=== PATIENT | male | born 1985 | race Caucasian/White ===

== ENCOUNTER 2018-01-23 11:26 | Emergency (ER) | payer OTHER, SELFPAY ==
[2018-01-23 11:30] VITALS: BP 153/90; PULSE 80; RESP 20; TEMP 36; O2SAT 98; BMI 24.4
--- NOTE | 2018-01-23 12:30 | ED.BACK ---
HPI - Back Pain/Injury <DEVANTE Donovan - Last Filed: 01/23/18 14:48> General Chief Complaint: Back Pain/Injury Stated Complaint: Fell off stool, right side pain Time Seen by Provider: 01/23/18 12:04 Source: patient and family Mode of arrival: ambulatory Limitations: no limitations History of Present Illness HPI Narrative: Patient presents after falling off a bar stool onto a car [place] yesterday. He landed on his right rib area. He now complains of pain on deep inspiration, coughing, sneezing, laughing in that area on his right ribs. He denies any shortness of breath. He has not tried ice, heat, ibuprofen or any rubt-bxh-fwzlrik pain medications at this time. He is concerned as he is supposed to be flying to [place] for the next week. He did note some right-sided abdominal pain today while having a bowel movement. He denies any urinary symptoms at this time or abdominal pain at this time. He states entire right side is tight and painful after his fall. Denies any numbness, tingling, incontinence or anesthesias. He denies any fevers or major medical history. He denies hitting his head, neck pain or back pain at this point time. Review of Systems <DEVANTE Donovan - Last Filed: 01/23/18 14:48> Review of Systems GENERAL: Denies chills, fatigue, malaise, fever, sweats. HEENT: Denies sinus pain, ear pain, sore throat, difficulty swallowing, dizziness. RESPIRATORY: See HPI CARDIOVASCULAR: Denies chest pain, palpitations, orthopnea, edema, GASTROINTESTINAL: Denies nausea, vomiting, abdominal pain, diarrhea, constipation, melena. : Denies dysuria, frequency, incontinence, hematuria, urinary retention. MUSCULOSKELETAL: See HPI SKIN: See HPI NEUROLOGIC: Denies weakness, headache, numbness, change in speech, confusion, seizures, incoordination. PSYCHIATRIC: No concerning psychosocial issues. 12 point review of systems is negative except for those stated above Exam <DEVANTE Donovan - Last Filed: 01/23/18 14:48> Narrative Exam Narrative: GENERAL: This is a well-nourished, well-developed patient, in mild distress. HEAD: Atraumatic. Normocephalic. No temporal or scalp tenderness. EYES: Pupils equal round and reactive. Extraocular motions intact. No scleral icterus. No injection or drainage. ENT: Nose without bleeding, purulent drainage or septal hematoma. Throat without erythema, tonsillar hypertrophy or exudate. Uvula midline. Airway patent. NECK: Trachea midline. No JVD or lymphadenopathy. Supple, nontender, no meningeal signs. CARDIOVASCULAR: Regular rate and rhythm without murmurs, gallops, or rubs. RESPIRATORY: Clear to auscultation. Breath sounds equal bilaterally. No wheezes, rales, or rhonchi. GASTROINTESTINAL: Abdomen soft, non-tender, nondistended. EXTREMITIES: No clubbing, cyanosis, or edema. No joint tenderness, effusion, or edema noted. BACK: Nontender without deformity or crepitance. No flank tenderness. NEURO: AOx3. SKIN: 3 cm abrasion right lower ribs. Overlying approximately 2 x 3 in of ecchymosis. No palpable deformities. Initial Vital Signs Initial Vital Signs: Vital Signs Temperature 96.8 F L 01/23/18 11:30 Pulse Rate 80 01/23/18 11:30 Respiratory Rate 20 01/23/18 11:30 Blood Pressure 153/90 H 01/23/18 11:30 Pulse Oximetry 98 01/23/18 11:30 <Attila Welch DO - Last Filed: 01/23/18 14:55> Initial Vital Signs Initial Vital Signs: Vital Signs Temperature 96.8 F L 01/23/18 11:30 Pulse Rate 80 01/23/18 11:30 Respiratory Rate 20 01/23/18 11:30 Blood Pressure 153/90 H 01/23/18 11:30 Pulse Oximetry 98 01/23/18 11:30 Course <JULIO Donovan-BC - Last Filed: 01/23/18 14:48> Orders Ordered: ED Orders 01/23/18 12:42 XR ribs RT min 3V w CXR1V Stat 01/23/18 13:10 Complete Blood Count AUTO DIFF Stat Comprehensive Metabolic Panel Stat Lipase Stat 01/23/18 13:15 Urinalysis and Microscopic Stat Reevaluation(s) Reevaluation #1: Lab is in to draw patient. Again denies need for pain medication, ice or heat at this point. Discussed waiting for x-ray result this point time. Time: 13:10 Reevaluation #2: Discussed negative x-ray results. Discussed waiting for labs at this point time. Time: 13:30 Reevaluation #3: Discussed results with patient and . Patient denies need for pain medication or ice at this point time. Discussed further workup of belly pain up at this morning, patient declines further workup at this time. States he would follow up if needed. Discussed at length return precautions of shortness of breath, difficulty breathing, weakness, numbness, tingling, acute changes including fever abdominal pain. Patient no questions or concerns at this point time. Time: 14:00 Vital Signs - 8 hr 01/23/18 11:30 01/23/18 14:04 Temperature 96.8 F L 96.5 F L Pulse Rate 80 71 Respiratory Rate 20 20 Blood Pressure 153/90 H Blood Pressure [Left Arm] 122/78 H Pulse Oximetry 98 99 <Attila Welch DO - Last Filed: 01/23/18 14:55> Orders Ordered: ED Orders 01/23/18 12:42 XR ribs RT min 3V w CXR1V Stat 01/23/18 13:10 Complete Blood Count AUTO DIFF Stat Comprehensive Metabolic Panel Stat Lipase Stat 01/23/18 13:15 Urinalysis and Microscopic Stat Vital Signs - 8 hr 01/23/18 11:30 01/23/18 14:04 Temperature 96.8 F L 96.5 F L Pulse Rate 80 71 Respiratory Rate 20 20 Blood Pressure 153/90 H Blood Pressure [Left Arm] 122/78 H Pulse Oximetry 98 99 MDM - Back Pain/Injury <DEVANTE DonovanBC - Last Filed: 01/23/18 14:48> Lab Data Attestation: I reviewed the patient's lab results. Result diagrams: 01/23/18 13:10 01/23/18 13:10 Lab Results 01/23/18 01/23/18 01/23/18 Range/Units 13:10 13:10 13:15 WBC 8.9 (4.5-11.0) X10^3/uL RBC 4.87 (4.5-5.9) X10^6/uL Hgb 15.8 (13.5-17.5) g/dL Hct 45.6 (41-53) % MCV 93.8 (80-100) fL MCH 32.5 (26-34) PG MCHC 34.6 (30-36) % RDW 12.9 (11.6-14.8) % Plt Count 265 (150-400) X10^3/uL Neut % (Auto) 79.5 H (50-75) % Lymph % (Auto) 10.9 L (25-40) % [place] % (Auto) 8.6 (3-14) % Eos % (Auto) 0.6 L (2-4) % Baso % (Auto) 0.4 (0-2) % Neut # (Auto) 7100 H (7981-4526) /uL Sodium 139 (137-145) mmol/L Potassium 4.4 (3.4-5.1) mmol/L Chloride 103 (98-107) mmol/L Carbon Dioxide 26 (22-32) mmol/L BUN 14 (9-20) mg/dL Creatinine 1.00 (0.66-1.25) mg/dL Estimated GFR > 60.0 (>60) mL/min BUN/Creatinine Ratio 14.0 (6-22) Glucose 100 (70-100) mg/dL Calcium 9.3 (8.4-10.2) mg/dL Total Bilirubin 0.6 (0.2-1.3) mg/dL AST 34 (17-59) IU/L ALT 37 (21-72) IU/L Alkaline Phosphatase 65 (38-126) U/L Total Protein 7.5 (6.3-8.2) g/dL Albumin 4.5 (3.5-5.0) g/dL Globulin 3.0 (1.7-4.1) g/dL Albumin/Globulin Ratio 1.5 (1.0-2.8) Lipase 31 (23-300) U/L Urine Color Yellow Urine Appearance Clear Urine pH 7.0 (4.5-8.0) Ur Specific [place] <=1.005 (1.000-1.035) Urine Protein Negative (Negative) Urine Glucose (UA) Negative (Normal) g/dL Urine Ketones Negative (NEGATIVE) Urine Occult Blood 1+ H (Negative) Urine Nitrate Negative (Negative) Urine Bilirubin Negative (NEGATIVE) Urine Urobilinogen 0.2 (0.2) E.U./dL Ur Leukocyte Esterase Negative (NEGATIVE) Urine RBC 1-5/hpf (0-5/HPF) Urine WBC None seen (0-5/HPF) Urine Bacteria None seen (None) Ur Culture Indicated? Cult not indicated Micro UA Comment Not Reportable Imaging Data right rib xray: Radiologist's impression: [address] [address] XRay Report Signed Patient: Chance Winchester MR#: [id number] : 1985 Acct:[id number] Age/Sex: 32 / M Date of Service: 01/23/18 Loc: ED Accession Number: [id number] Procedure: XR ribs RT min 3V w CXR1V Ordering Provider: Abbi Russell [employer] PROCEDURE: XR RIBS RT MIN 3V W CXR 1V INDICATIONS: fall onto rico, pain on inspiration, coughing TECHNIQUE: 2 views of the right ribs were acquired, along with a single view chest. COMPARISON: None. FINDINGS: Surgical changes and devices: None. Bones and chest wall: No fractures or dislocations. No suspicious bony lesions. Overlying soft tissues appear unremarkable. Lungs and pleura: No pleural effusions or pneumothorax. Lungs appear clear. Mediastinum: Mediastinal contours appear normal. Heart size is normal. IMPRESSION: No displaced rib fractures. Dictated by: Zulema Velásquez MD, PhD on 01/23/2018 at 13:14 Approved by: Zulema Velásquez MD, PhD on 01/23/2018 at 13:14 [facility] Narrative Medical decision making narrative: Patient presents with side pain after a fall into a car [place] from a stool. He complains of rib pain. X-rays show no acute fractures at this point time. Lab work came back within normal limits. Lab urinalysis came back within normal limits. Discussed probably etiology of rib pain or contusion. Patient declined further workup of transient abdominal pain at this point time. Discussed at length return precautions the patient and had no questions or concerns. <Attila Welch DO - Last Filed: 01/23/18 14:55> Lab Data Lab Results 01/23/18 01/23/18 01/23/18 Range/Units 13:10 13:10 13:15 WBC 8.9 (4.5-11.0) X10^3/uL RBC 4.87 (4.5-5.9) X10^6/uL Hgb 15.8 (13.5-17.5) g/dL Hct 45.6 (41-53) % MCV 93.8 (80-100) fL MCH 32.5 (26-34) PG MCHC 34.6 (30-36) % RDW 12.9 (11.6-14.8) % Plt Count 265 (150-400) X10^3/uL Neut % (Auto) 79.5 H (50-75) % Lymph % (Auto) 10.9 L (25-40) % [place] % (Auto) 8.6 (3-14) % Eos % (Auto) 0.6 L (2-4) % Baso % (Auto) 0.4 (0-2) % Neut # (Auto) 7100 H (3788-7331) /uL Sodium 139 (137-145) mmol/L Potassium 4.4 (3.4-5.1) mmol/L Chloride 103 (98-107) mmol/L Carbon Dioxide 26 (22-32) mmol/L BUN 14 (9-20) mg/dL Creatinine 1.00 (0.66-1.25) mg/dL Estimated GFR > 60.0 (>60) mL/min BUN/Creatinine Ratio 14.0 (6-22) Glucose 100 (70-100) mg/dL Calcium 9.3 (8.4-10.2) mg/dL Total Bilirubin 0.6 (0.2-1.3) mg/dL AST 34 (17-59) IU/L ALT 37 (21-72) IU/L Alkaline Phosphatase 65 (38-126) U/L Total Protein 7.5 (6.3-8.2) g/dL Albumin 4.5 (3.5-5.0) g/dL Globulin 3.0 (1.7-4.1) g/dL Albumin/Globulin Ratio 1.5 (1.0-2.8) Lipase 31 (23-300) U/L Urine Color Yellow Urine Appearance Clear Urine pH 7.0 (4.5-8.0) Ur Specific [place] <=1.005 (1.000-1.035) Urine Protein Negative (Negative) Urine Glucose (UA) Negative (Normal) g/dL Urine Ketones Negative (NEGATIVE) Urine Occult Blood 1+ H (Negative) Urine Nitrate Negative (Negative) Urine Bilirubin Negative (NEGATIVE) Urine Urobilinogen 0.2 (0.2) E.U./dL Ur Leukocyte Esterase Negative (NEGATIVE) Urine RBC 1-5/hpf (0-5/HPF) Urine WBC None seen (0-5/HPF) Urine Bacteria None seen (None) Ur Culture Indicated? Cult not indicated Micro UA Comment Not Reportable Discharge Plan Departure Patient Disposition: Home, Self-Care Clinical Impression: Rib pain on right side Discharge Date/Time: 01/23/18 14:15 Interventions: ED Discharge Assessment Last Done: 01/23/18 14:15 Instructions: DI for Contusion, DI for Rib Contusion Activity Restrictions/Additional Instructions: Your x-rays any lab work came back normal today. I suggest oxtf-[id number] pain medications as well as ice or heat for pain control. Come back to the emergency department for any shortness of breath, trouble breathing, fever, abd pain or acute concerns. Follow-up with her primary care provider if needed or come back to the emergency department if necessary. <Attila Welch DO - Last Filed: 01/23/18 14:55> Cosign ED Attending Laurence Attestation: I was available for consultation during this patient's emergency department encounter
--- NOTE | 2018-01-23 12:42 | DI.RAD.S_ITS ---
PROCEDURE: XR RIBS RT MIN 3V W CXR 1V INDICATIONS: fall onto daniele, pain on inspiration, coughing TECHNIQUE: 2 views of the right ribs were acquired, along with a single view chest. COMPARISON: None. FINDINGS: Surgical changes and devices: None. Bones and chest wall: No fractures or dislocations. No suspicious bony lesions. Overlying soft tissues appear unremarkable. Lungs and pleura: No pleural effusions or pneumothorax. Lungs appear clear. Mediastinum: Mediastinal contours appear normal. Heart size is normal. IMPRESSION: No displaced rib fractures. Dictated by: Zulema Velásquez MD, PhD on 01/23/2018 at 13:14 Approved by: Zulema Velásquez MD, PhD on 01/23/2018 at 13:14
--- NOTE | 2018-01-23 12:49 | ED_ITS ---
HPI - Back Pain/Injury <DEVANTE Donovan - Last Filed: 01/23/18 14:48> General Chief Complaint: Back Pain/Injury Stated Complaint: Fell off stool, right side pain Time Seen by Provider: 01/23/18 12:04 Source: patient and family Mode of arrival: ambulatory Limitations: no limitations History of Present Illness HPI Narrative: Patient presents after falling off a bar stool onto a car [place] yesterday. He landed on his right rib area. He now complains of pain on deep inspiration, coughing, sneezing, laughing in that area on his right ribs. He denies any shortness of breath. He has not tried ice, heat, ibuprofen or any vlsi-rvo-herrrcv pain medications at this time. He is concerned as he is supposed to be flying to [place] for the next week. He did note some right-sided abdominal pain today while having a bowel movement. He denies any urinary symptoms at this time or abdominal pain at this time. He states entire right side is tight and painful after his fall. Denies any numbness, tingling, incontinence or anesthesias. He denies any fevers or major medical history. He denies hitting his head, neck pain or back pain at this point time. Review of Systems <DEVANTE Donovan - Last Filed: 01/23/18 14:48> Review of Systems GENERAL: Denies chills, fatigue, malaise, fever, sweats. HEENT: Denies sinus pain, ear pain, sore throat, difficulty swallowing, dizziness. RESPIRATORY: See HPI CARDIOVASCULAR: Denies chest pain, palpitations, orthopnea, edema, GASTROINTESTINAL: Denies nausea, vomiting, abdominal pain, diarrhea, constipation, melena. : Denies dysuria, frequency, incontinence, hematuria, urinary retention. MUSCULOSKELETAL: See HPI SKIN: See HPI NEUROLOGIC: Denies weakness, headache, numbness, change in speech, confusion, seizures, incoordination. PSYCHIATRIC: No concerning psychosocial issues. 12 point review of systems is negative except for those stated above Exam <DEVANTE Donovan - Last Filed: 01/23/18 14:48> Narrative Exam Narrative: GENERAL: This is a well-nourished, well-developed patient, in mild distress. HEAD: Atraumatic. Normocephalic. No temporal or scalp tenderness. EYES: Pupils equal round and reactive. Extraocular motions intact. No scleral icterus. No injection or drainage. ENT: Nose without bleeding, purulent drainage or septal hematoma. Throat without erythema, tonsillar hypertrophy or exudate. Uvula midline. Airway patent. NECK: Trachea midline. No JVD or lymphadenopathy. Supple, nontender, no meningeal signs. CARDIOVASCULAR: Regular rate and rhythm without murmurs, gallops, or rubs. RESPIRATORY: Clear to auscultation. Breath sounds equal bilaterally. No wheezes , rales, or rhonchi. GASTROINTESTINAL: Abdomen soft, non-tender, nondistended. EXTREMITIES: No clubbing, cyanosis, or edema. No joint tenderness, effusion, or edema noted. BACK: Nontender without deformity or crepitance. No flank tenderness. NEURO: AOx3. SKIN: 3 cm abrasion right lower ribs. Overlying approximately 2 x 3 in of ecchymosis. No palpable deformities. Initial Vital Signs Initial Vital Signs: Vital Signs Temperature 96.8 F L 01/23/18 11:30 Pulse Rate 80 01/23/18 11:30 Respiratory Rate 20 01/23/18 11:30 Blood Pressure 153/90 H 01/23/18 11:30 Pulse Oximetry 98 01/23/18 11:30 <Attila Welch DO - Last Filed: 01/23/18 14:55> Initial Vital Signs Initial Vital Signs: Vital Signs Temperature 96.8 F L 01/23/18 11:30 Pulse Rate 80 01/23/18 11:30 Respiratory Rate 20 01/23/18 11:30 Blood Pressure 153/90 H 01/23/18 11:30 Pulse Oximetry 98 01/23/18 11:30 Course <JULIO Donovan-BC - Last Filed: 01/23/18 14:48> Orders Ordered: ED Orders 01/23/18 12:42 XR ribs RT min 3V w CXR1V Stat 01/23/18 13:10 Complete Blood Count AUTO DIFF Stat Comprehensive Metabolic Panel Stat Lipase Stat 01/23/18 13:15 Urinalysis and Microscopic Stat Reevaluation(s) Reevaluation #1: Lab is in to draw patient. Again denies need for pain medication, ice or heat at this point. Discussed waiting for x-ray result this point time. Time: 13:10 Reevaluation #2: Discussed negative x-ray results. Discussed waiting for labs at this point time. Time: 13:30 Reevaluation #3: Discussed results with patient and . Patient denies need for pain medication or ice at this point time. Discussed further workup of belly pain up at this morning, patient declines further workup at this time. States he would follow up if needed. Discussed at length return precautions of shortness of breath, difficulty breathing, weakness, numbness, tingling, acute changes including fever abdominal pain. Patient no questions or concerns at this point time. Time: 14:00 Vital Signs - 8 hr 01/23/18 11:30 01/23/18 14:04 Temperature 96.8 F L 96.5 F L Pulse Rate 80 71 Respiratory Rate 20 20 Blood Pressure 153/90 H Blood Pressure [Left Arm] 122/78 H Pulse Oximetry 98 99 <Attila Welch DO - Last Filed: 01/23/18 14:55> Orders Ordered: ED Orders 01/23/18 12:42 XR ribs RT min 3V w CXR1V Stat 01/23/18 13:10 Complete Blood Count AUTO DIFF Stat Comprehensive Metabolic Panel Stat Lipase Stat 01/23/18 13:15 Urinalysis and Microscopic Stat Vital Signs - 8 hr 01/23/18 11:30 01/23/18 14:04 Temperature 96.8 F L 96.5 F L Pulse Rate 80 71 Respiratory Rate 20 20 Blood Pressure 153/90 H Blood Pressure [Left Arm] 122/78 H Pulse Oximetry 98 99 MDM - Back Pain/Injury <DEVANTE DonovanBC - Last Filed: 01/23/18 14:48> Lab Data Attestation: I reviewed the patient's lab results. Result diagrams: 01/23/18 13:10 01/23/18 13:10 Lab Results 01/23/18 01/23/18 01/23/18 Range/Units 13:10 13:10 13:15 WBC 8.9 (4.5-11.0) X10^3/uL RBC 4.87 (4.5-5.9) X10^6/uL Hgb 15.8 (13.5-17.5) g/dL Hct 45.6 (41-53) % MCV 93.8 (80-100) fL MCH 32.5 (26-34) PG MCHC 34.6 (30-36) % RDW 12.9 (11.6-14.8) % Plt Count 265 (150-400) X10^3/uL Neut % (Auto) 79.5 H (50-75) % Lymph % (Auto) 10.9 L (25-40) % [place] % (Auto) 8.6 (3-14) % Eos % (Auto) 0.6 L (2-4) % Baso % (Auto) 0.4 (0-2) % Neut # (Auto) 7100 H (7821-6398) /uL Sodium 139 (137-145) mmol/L Potassium 4.4 (3.4-5.1) mmol/L Chloride 103 (98-107) mmol/L Carbon Dioxide 26 (22-32) mmol/L BUN 14 (9-20) mg/dL Creatinine 1.00 (0.66-1.25) mg/dL Estimated GFR > 60.0 (>60) mL/min BUN/Creatinine Ratio 14.0 (6-22) Glucose 100 (70-100) mg/dL Calcium 9.3 (8.4-10.2) mg/dL Total Bilirubin 0.6 (0.2-1.3) mg/dL AST 34 (17-59) IU/L ALT 37 (21-72) IU/L Alkaline Phosphatase 65 (38-126) U/L Total Protein 7.5 (6.3-8.2) g/dL Albumin 4.5 (3.5-5.0) g/dL Globulin 3.0 (1.7-4.1) g/dL Albumin/Globulin Ratio 1.5 (1.0-2.8) Lipase 31 (23-300) U/L Urine Color Yellow Urine Appearance Clear Urine pH 7.0 (4.5-8.0) Ur Specific [place] <=1.005 (1.000-1.035) Urine Protein Negative (Negative) Urine Glucose (UA) Negative (Normal) g/dL Urine Ketones Negative (NEGATIVE) Urine Occult Blood 1+ H (Negative) Urine Nitrate Negative (Negative) Urine Bilirubin Negative (NEGATIVE) Urine Urobilinogen 0.2 (0.2) E.U./dL Ur Leukocyte Esterase Negative (NEGATIVE) Urine RBC 1-5/hpf (0-5/HPF) Urine WBC None seen (0-5/HPF) Urine Bacteria None seen (None) Ur Culture Indicated? Cult not indicated Micro UA Comment Not Reportable Imaging Data right rib xray: Radiologist's impression: [address] [address] XRay Report Signed Patient: Chance Winchester MR#: [id number] : 1985 Acct:[id number] Age/Sex: 32 / M Date of Service: 01/23/18 Loc: ED Accession Number: [id number] Procedure: XR ribs RT min 3V w CXR1V Ordering Provider: Abbi Russell [employer]VIRONMENT[employer]AFET[employer] SPECIALIST-BC PROCEDURE: XR RIBS RT MIN 3V W CXR 1V INDICATIONS: fall onto rico, pain on inspiration, coughing TECHNIQUE: 2 views of the right ribs were acquired, along with a single view chest. COMPARISON: None. FINDINGS: Surgical changes and devices: None. Bones and chest wall: No fractures or dislocations. No suspicious bony lesions. Overlying soft tissues appear unremarkable. Lungs and pleura: No pleural effusions or pneumothorax. Lungs appear clear. Mediastinum: Mediastinal contours appear normal. Heart size is normal. IMPRESSION: No displaced rib fractures. Dictated by: Zulema Velásquez MD, PhD on 01/23/2018 at 13:14 Approved by: Zulema Velásquez MD, PhD on 01/23/2018 at 13:14 [facility] Narrative Medical decision making narrative: Patient presents with side pain after a fall into a car [place] from a stool. He complains of rib pain. X-rays show no acute fractures at this point time. Lab work came back within normal limits. Lab urinalysis came back within normal limits. Discussed probably etiology of rib pain or contusion. Patient declined further workup of transient abdominal pain at this point time. Discussed at length return precautions the patient and had no questions or concerns. <Attila Welch DO - Last Filed: 01/23/18 14:55> Lab Data Lab Results 01/23/18 01/23/18 01/23/18 Range/Units 13:10 13:10 13:15 WBC 8.9 (4.5-11.0) X10^3/uL RBC 4.87 (4.5-5.9) X10^6/uL Hgb 15.8 (13.5-17.5) g/dL Hct 45.6 (41-53) % MCV 93.8 (80-100) fL MCH 32.5 (26-34) PG MCHC 34.6 (30-36) % RDW 12.9 (11.6-14.8) % Plt Count 265 (150-400) X10^3/uL Neut % (Auto) 79.5 H (50-75) % Lymph % (Auto) 10.9 L (25-40) % [place] % (Auto) 8.6 (3-14) % Eos % (Auto) 0.6 L (2-4) % Baso % (Auto) 0.4 (0-2) % Neut # (Auto) 7100 H (1463-3763) /uL Sodium 139 (137-145) mmol/L Potassium 4.4 (3.4-5.1) mmol/L Chloride 103 (98-107) mmol/L Carbon Dioxide 26 (22-32) mmol/L BUN 14 (9-20) mg/dL Creatinine 1.00 (0.66-1.25) mg/dL Estimated GFR > 60.0 (>60) mL/min BUN/Creatinine Ratio 14.0 (6-22) Glucose 100 (70-100) mg/dL Calcium 9.3 (8.4-10.2) mg/dL Total Bilirubin 0.6 (0.2-1.3) mg/dL AST 34 (17-59) IU/L ALT 37 (21-72) IU/L Alkaline Phosphatase 65 (38-126) U/L Total Protein 7.5 (6.3-8.2) g/dL Albumin 4.5 (3.5-5.0) g/dL Globulin 3.0 (1.7-4.1) g/dL Albumin/Globulin Ratio 1.5 (1.0-2.8) Lipase 31 (23-300) U/L Urine Color Yellow Urine Appearance Clear Urine pH 7.0 (4.5-8.0) Ur Specific [place] <=1.005 (1.000-1.035) Urine Protein Negative (Negative) Urine Glucose (UA) Negative (Normal) g/dL Urine Ketones Negative (NEGATIVE) Urine Occult Blood 1+ H (Negative) Urine Nitrate Negative (Negative) Urine Bilirubin Negative (NEGATIVE) Urine Urobilinogen 0.2 (0.2) E.U./dL Ur Leukocyte Esterase Negative (NEGATIVE) Urine RBC 1-5/hpf (0-5/HPF) Urine WBC None seen (0-5/HPF) Urine Bacteria None seen (None) Ur Culture Indicated? Cult not indicated Micro UA Comment Not Reportable Discharge Plan Departure Patient Disposition: Home, Self-Care Clinical Impression: Rib pain on right side Discharge Date/Time: 01/23/18 14:15 Interventions: ED Discharge Assessment Last Done: 01/23/18 14:15 Instructions: DI for Contusion, DI for Rib Contusion Activity Restrictions/Additional Instructions: Your x-rays any lab work came back normal today. I suggest momd-hmv-chauovb pain medications as well as ice or heat for pain control. Come back to the emergency department for any shortness of breath, trouble breathing, fever, abd pain or acute concerns. Follow-up with her primary care provider if needed or come back to the emergency department if necessary. <Attila Welch DO - Last Filed: 01/23/18 14:55> Cosign ED Attending Laurence Attestation: I was available for consultation during this patient's emergency department encounter
[2018-01-23 13:19] LABS: Add Manual Diff / Slide Review NO; Basophils Percent Auto 0.4 % (0-2); Eosinophils Percent Auto 0.6 % (2-4); Hematocrit 45.6 % (41-53); Hemoglobin 15.8 g/dL (13.5-17.5); Lymphocytes Percent Auto 10.9 % (25-40); Mean Corpuscular HGB Conc 34.6 % (30-36); Mean Corpuscular Hemoglobin 32.5 PG (26-34); Mean Corpuscular Volume 93.8 fL (80-100); Monocytes Percent Auto 8.6 % (3-14); Neutrophils Absolute Auto 7100 /uL (3000-5900); Neutrophils Percent Auto 79.5 % (50-75); Platelet Count 265 X10^3/uL (150-400); Red Blood Cell Count 4.87 X10^6/uL (4.5-5.9); Red Cell Distribution Width 12.9 % (11.6-14.8); White Blood Cell Count 8.9 X10^3/uL (4.5-11.0)
[2018-01-23 13:27] LABS: Bacteria Urine None Seen; WBC Urine None Seen (0-5/HPF)
[2018-01-23 13:28] LABS: Appearance Urine UA CLEAR; Bilirubin Urine UA NEGATIVE (NEGATIVE); Color Urine UA YELLOW; Glucose Urine UA NEGATIVE (Normal); Ketones Urine UA NEGATIVE (NEGATIVE); Leukocyte Esterase Urine UA NEGATIVE (NEGATIVE); Nitrite Urine UA Negative (Negative); Occult Blood Urine UA 1+ (Negative); Protein Urine UA NEGATIVE (Negative); Specific Gravity Urine UA <=1.005 (1.000-1.035); Urobilinogen Urine UA 0.2 E.U./dL (0.2)
[2018-01-23 13:31] LABS: Alanine Aminotransferase 37 IU/L (21-72); Albumin 4.5 g/dL (3.5-5.0); Albumin Globulin Ratio 1.5 (1.0-2.8); Alkaline Phosphatase 65 U/L (38-126); Aspartate Aminotransferase 34 IU/L (17-59); Bilirubin Total 0.6 mg/dL (0.2-1.3); Blood Urea Nitrogen 14 mg/dL (9-20); Calcium 9.3 mg/dL (8.4-10.2); Carbon Dioxide 26 mmol/L (22-32); Chloride 103 mmol/L (98-107); Estimated Glomerular Filt Rate > 60.0 mL/min (>60); Glucose 100 mg/dL (70-100); HEMOLYSIS < 15 (0-50); Lipase 31 U/L (23-300); Potassium 4.4 mmol/L (3.4-5.1); Sodium 139 mmol/L (137-145); Total Protein 7.5 g/dL (6.3-8.2)
[2018-01-23 13:35] LABS: Culture Indicated Urine Cult Not Indicated; RBC Urine 1-5/HPF (0-5/HPF)
[2018-01-23 14:04] VITALS: BP 122/78; PULSE 71; RESP 20; TEMP 35.8; O2SAT 99
== END 2018-01-23 14:15 | disposition home or self-care (01) ==
PROVIDERS: Emergency Provider Nurse Practitioner Family
DX: R07.81 Pleurodynia (principal)
CPT/HCPCS: 71101; 80053; 81001; 81003; 83690; 85025; 99282; 99284

== ENCOUNTER 2023-05-19 12:31 | Emergency (ER) | payer OTHER, SELFPAY ==
[2023-05-19 12:52] VITALS: BP 147/67; PULSE 97; RESP 20; TEMP 37.1; O2SAT 98; BMI 23.8
--- NOTE | 2023-05-19 14:18 | ED_ITS ---
HPI - URI/Sore Throat <Meseret Fairchild PA-C - Last Filed: 05/19/23 18:04> General Chief Complaint: Upper Respiratory Symptoms Stated Complaint: swollen lymphnodes/right side of face swollen Time Seen by Provider: 05/19/23 12:36 Source: patient Mode of arrival: Ambulatory History of Present Illness HPI Narrative: Patient is a 37 year old male who has been sick for nearly 2 weeks with sore throat, congestion, mild cough. Seen at the [facility] on 05/11 and covid/flu/strep was negative. He presents today with worsening right jaw/neck swelling and pain. The pain limits the opening of his mouth. His throat is also very sore and hurts to swallow. He denies fever or chills, nausea vomiting, diarrhea or urinary symptoms. He has been taking Tylenol, ibuprofen and codeine cough syrup, which he says makes him loopy but does not help him sleep. He is having difficulty sleeping due to the pain in his jaw and neck. Related Data Allergies Allergy/AdvReac Type Severity Reaction Status Date / Time No Known Drug Allergies Allergy Verified 05/19/23 12:58 Review of Systems <Meseret Fairchild PA-C - Last Filed: 05/19/23 18:04> Review of Systems ROS Unobtainable: All systems reviewed & are unremarkable except as noted in HPI and below Patient History <Meseret Fairchild PA-C - Last Filed: 05/19/23 18:04> Social History Smoking Status: Current every day smoker Smoking Status: Current every day smoker alcohol intake frequency: a few times a week Substance Use Type: does not use Exam <Meseret Fairchild PA-C - Last Filed: 05/19/23 18:04> Narrative Exam Narrative: GENERAL: 37 year old patient appears stated age. Well-developed patient, in no distress. NEURO: AOx3. HEAD: Atraumatic. Normocephalic. EYES: Pupils equal round and reactive. Extraocular motions intact. No scleral icterus. No injection or drainage. ENT: Nose without bleeding or purulent drainage. Throat with erythema, mild tonsillar hypertrophy, no exudate. Uvula is midline. Airway patent. Patient complains of difficulty opening his jaw but is able to open 3 cm. No swelling or tenderness under the tongue. TMs pearly ghosh bilaterally. No drainage or purulence in the external auditory canal. No erythema or edema over the mastoid. NECK: Trachea midline. Tender lymphadenopathy bilaterally, right greater than left. No overlying erythema or edema of the skin. RESPIRATORY: No distress or increased work of breathing SKIN: No rash or erythema of visible areas Initial Vital Signs Initial Vital Signs: Vital Signs Temperature 98.8 F 05/19/23 12:52 Pulse Rate 97 H 05/19/23 12:52 Respiratory Rate 20 05/19/23 12:52 Blood Pressure 147/67 H 05/19/23 12:52 Pulse Oximetry 98 05/19/23 12:52 Oxygen Delivery Method Room Air 05/19/23 12:52 <Abbi Mcelroy MD - Last Filed: 05/19/23 18:43> Initial Vital Signs Initial Vital Signs: Vital Signs Temperature 98.8 F 05/19/23 12:52 Pulse Rate 97 H 05/19/23 12:52 Respiratory Rate 20 05/19/23 12:52 Blood Pressure 147/67 H 05/19/23 12:52 Pulse Oximetry 98 05/19/23 12:52 Oxygen Delivery Method Room Air 05/19/23 12:52 Course <Meseret Fairchild PA-C - Last Filed: 05/19/23 18:04> Orders Ordered: ED Orders 05/19/23 14:20 CBC Auto Diff [Complete Blood Count AUTO DIFF] Stat CMP [Comprehensive Metabolic Panel] Stat Monotest Stat Pathologist Review (for CBC) Stat Vital Signs Vital signs: Vital Signs - 8 hr 05/19/23 12:52 05/19/23 15:17 Temperature 98.8 F Pulse Rate 97 H 90 Respiratory Rate 20 16 Blood Pressure 147/67 H 145/65 H Pulse Oximetry 98 99 Oxygen Delivery Method Room Air Room Air <Abbi Mcelroy MD - Last Filed: 05/19/23 18:43> Orders Ordered: ED Orders 05/19/23 14:20 CBC Auto Diff [Complete Blood Count AUTO DIFF] Stat CMP [Comprehensive Metabolic Panel] Stat Monotest Stat Pathologist Review (for CBC) Stat Vital Signs Vital signs: Vital Signs - 8 hr 05/19/23 12:52 05/19/23 15:17 Temperature 98.8 F Pulse Rate 97 H 90 Respiratory Rate 20 16 Blood Pressure 147/67 H 145/65 H Pulse Oximetry 98 99 Oxygen Delivery Method Room Air Room Air MDM - URI/Sore Throat <Meseret Fairchild PA-C - Last Filed: 05/19/23 18:04> Lab Data 05/19/23 14:20 05/19/23 14:20 Labs: Lab Results 05/19/23 Range/Units 14:20 WBC 14.7 H (4.5-11.0) X10^3/uL RBC 4.37 L (4.5-5.9) X10^6/uL Hgb 13.6 (13.5-17.5) g/dL Hct 39.6 L (41-53) % MCV 90.6 (80-100) fL MCH 31.1 (26-34) PG MCHC 34.3 (30-36) % RDW 12.5 (11.6-14.8) % Plt Count 289 (150-400) X10^3/uL Neut % (Auto) Not Reportable Lymph % (Auto) Not Reportable [place] % (Auto) Not Reportable Eos % (Auto) Not Reportable Baso % (Auto) Not Reportable Lymph # (Auto) Not Reportable [place] # (Auto) Not Reportable Baso # (Auto) Not Reportable Total Counted 100 Seg Neutrophils % 27.0 L (38-70) % Band Neutrophils % 1.0 L (3-7) % Lymphocytes % (Manual) 18.0 L (25-45) % Atypical Lymphs % 48.0 H ( - 0) % Monocytes % (Manual) 6.0 (2-11) % Neutrophils # (Manual) 4116 ([id number]) /uL RBC Morphology Normal morphology Sodium 136 L (137-145) mmol/L Potassium 4.5 (3.4-5.1) mmol/L Chloride 101 (98-107) mmol/L Carbon Dioxide 28 (22-32) mmol/L BUN 12 (9-20) mg/dL Creatinine 1.01 (0.66-1.25) mg/dL Estimated GFR > 60 (>60) mL/min BUN/Creatinine Ratio 11.9 (6-22) Glucose 103 H (70-100) mg/dL Calcium 9.3 (8.4-10.2) mg/dL Total Bilirubin 0.6 (0.2-1.3) mg/dL AST 93 H (17-59) IU/L ALT 123 H (<50) IU/L Alkaline Phosphatase 74 (38-126) U/L Total Protein 7.4 (6.3-8.2) g/dL Albumin 4.0 (3.5-5.0) g/dL Globulin 3.4 (1.7-4.1) g/dL Albumin/Globulin Ratio 1.2 (1.0-2.8) Monoscreen Positive H (Negative) MDM Narrative Medical decision making narrative: Multiple etiologies for patient's symptoms considered including, but not limited to: Bacterial pharyngitis, viral pharyngitis, mono, less likely Nikolas's angina, peritonsillar abscess, deep neck space infection, dental infection. We will repeat rapid strep and throat culture today and labs to include testing for mono, CBC and CMP. Patient does not appear toxic, his vital signs are within normal limits. Labs show positive mono, leukocytosis with elevated atypical lymphocytes and mild elevation liver enzymes. These findings are consistent with mononucleosis. Discussed findings with patient, advised supportive care, no contact sports or high velocity activities in order to decrease risk of splenic injury. Literature does not support treatment with antivirals or steroids, unless for preservation of the airway. Patient states understanding of instructions. Patient's symptoms improved over duration of stay with above-stated therapies. Findings and discharge diagnosis discussed with patient/family followed by verbalization of understanding Return precautions discussed with patient/family whom verbalize understanding of diagnosis and plan <Abbi Mcelroy MD - Last Filed: 05/19/23 18:43> Lab Data Labs: Lab Results 05/19/23 Range/Units 14:20 WBC 14.7 H (4.5-11.0) X10^3/uL RBC 4.37 L (4.5-5.9) X10^6/uL Hgb 13.6 (13.5-17.5) g/dL Hct 39.6 L (41-53) % MCV 90.6 (80-100) fL MCH 31.1 (26-34) PG MCHC 34.3 (30-36) % RDW 12.5 (11.6-14.8) % Plt Count 289 (150-400) X10^3/uL Neut % (Auto) Not Reportable Lymph % (Auto) Not Reportable [place] % (Auto) Not Reportable Eos % (Auto) Not Reportable Baso % (Auto) Not Reportable Lymph # (Auto) Not Reportable [place] # (Auto) Not Reportable Baso # (Auto) Not Reportable Total Counted 100 Seg Neutrophils % 27.0 L (38-70) % Band Neutrophils % 1.0 L (3-7) % Lymphocytes % (Manual) 18.0 L (25-45) % Atypical Lymphs % 48.0 H ( - 0) % Monocytes % (Manual) 6.0 (2-11) % Neutrophils # (Manual) 4116 (4355-4565) /uL RBC Morphology Normal morphology Sodium 136 L (137-145) mmol/L Potassium 4.5 (3.4-5.1) mmol/L Chloride 101 (98-107) mmol/L Carbon Dioxide 28 (22-32) mmol/L BUN 12 (9-20) mg/dL Creatinine 1.01 (0.66-1.25) mg/dL Estimated GFR > 60 (>60) mL/min BUN/Creatinine Ratio 11.9 (6-22) Glucose 103 H (70-100) mg/dL Calcium 9.3 (8.4-10.2) mg/dL Total Bilirubin 0.6 (0.2-1.3) mg/dL AST 93 H (17-59) IU/L ALT 123 H (<50) IU/L Alkaline Phosphatase 74 (38-126) U/L Total Protein 7.4 (6.3-8.2) g/dL Albumin 4.0 (3.5-5.0) g/dL Globulin 3.4 (1.7-4.1) g/dL Albumin/Globulin Ratio 1.2 (1.0-2.8) Monoscreen Positive H (Negative) Discharge Plan Departure Patient Disposition: Home Clinical Impression: Mononucleosis Qualifiers: Infectious mononucleosis etiology: unspecified organism Infectious mononucleosis complication: without complication Qualified Code(s): B27.90 - Infectious mononucleosis, unspecified without complication Instructions: DI for Mononucleosis-Adult Activity Restrictions/Additional Instructions: *You have been diagnosed with mononucleosis. As we discussed, the treatment for this is supportive care and time. I would suggest taken ibuprofen before bed to try to help you sleep. You can try gargling with saltwater and tea with honey for sore throat. It may take weeks to months for the fatigue to resolve. I would advise avoiding contact or high velocity sports or activities until your better, as mono does cause enlargement of the spleen, which increases the risk of splenic injury if you get in accident. Please return to the emergency department if you are having increasing difficulty breathing, worsening abdominal pain or vomiting. *What to do: *Please continue to take your regular medications as directed. [ ] New medication prescriptions sent to your pharmacy: [ ] [ ] New medication written as a paper prescription [x] No new medications given *Please follow up with your primary care provider in 2-3 days, call for an appointment. Let them know you were seen in the Emergency Department and that we ask that you be seen in follow up. We will electronically transmit a record of today's note if your PCP is in our system *If you do not have a primary care provider please contact the [facility] Resource line at [phone]. They will ask some questions about your medical history and help get you set up with a doctor in the community. *Return to Emergency Department if you should have any new, worsening or concerning symptoms, such as [fever greater than 101 F, shaking chills, worsening pain, persistent vomiting or other concerning symptoms]. Stand Alone Forms: Patient Portal/API ED Sign-out <Abbi Mcelroy MD - Last Filed: 05/19/23 18:43> Cosign ED Attending Robature Attestation: I did not see this patient. I was available all times for consultation.
[2023-05-19 14:30] LABS: Hematocrit 39.6 % (41-53); Hemoglobin 13.6 g/dL (13.5-17.5); Mean Corpuscular HGB Conc 34.3 % (30-36); Mean Corpuscular Hemoglobin 31.1 PG (26-34); Mean Corpuscular Volume 90.6 fL (80-100); Platelet Count 289 X10^3/uL (150-400); Red Blood Cell Count 4.37 X10^6/uL (4.5-5.9); Red Cell Distribution Width 12.5 % (11.6-14.8); White Blood Cell Count 14.7 X10^3/uL (4.5-11.0)
[2023-05-19 14:32] LABS: Add Manual Diff / Slide Review YES
[2023-05-19 14:46] LABS: Alanine Aminotransferase 123 IU/L (<50); Albumin Globulin Ratio 1.2 (1.0-2.8); Alkaline Phosphatase 74 U/L (38-126); Aspartate Aminotransferase 93 IU/L (17-59); BUN Creatinine Ratio 11.9 (6-22); Bilirubin Total 0.6 mg/dL (0.2-1.3); Blood Urea Nitrogen 12 mg/dL (9-20); Calcium 9.3 mg/dL (8.4-10.2); Carbon Dioxide 28 mmol/L (22-32); Chloride 101 mmol/L (98-107); Estimated Glomerular Filt Rate > 60 mL/min (>60); Globulin 3.4 g/dL (1.7-4.1); Glucose 103 mg/dL (70-100); HEMOLYSIS < 15 (0-50); Potassium 4.5 mmol/L (3.4-5.1); Sodium 136 mmol/L (137-145); Total Protein 7.4 g/dL (6.3-8.2)
[2023-05-19 14:51] LABS: Monotest Positive (Negative)
[2023-05-19 15:08] LABS: Neutrophils Absolute Manual 4116 /uL (3000-5900); RBC Morphology Normal Morphology; Total Cells Counted 100
[2023-05-19 15:17] VITALS: BP 145/65; PULSE 90; RESP 16; O2SAT 99
== END 2023-05-19 15:17 | disposition home or self-care (01) ==
PROVIDERS: Emergency Provider Physician Assistant
DX: B27.90 Infectious mononucleosis, unspecified without complication (principal)
CPT/HCPCS: 36415; 80053; 85007; 85025; 86318; 99283

== ENCOUNTER → 2023-06-09 08:01 | Outpatient (CLI) | payer OTHER, SELFPAY ==
--- NOTE | 2023-06-09 | DI.MRI.S_ITS ---
PROCEDURE: MR SHOULDER RT W CON INDICATIONS: RIGHT SHOULDER PAIN TECHNIQUE: After the administration of 12 mL of dilute intra-articular Gadolinium contrast, oblique coronal T1 and T2 spin echo with fat saturation, oblique sagittal T1 spin echo with and without fat saturation, oblique sagittal T2 fast spin echo with fat saturation, axial T1 spin echo with fat saturation through the shoulder. COMPARISON: None. FINDINGS: Image quality: Excellent. Rotator cuff: There is supraspinatus tendinosis with low-grade interstitial tear. The infraspinatus and subscapularis tendons appear intact throughout. No rotator cuff muscle atrophy on sagittal images. There is small subacromial/subdeltoid bursal fluid, suggesting mild bursitis. Bones and bursae: No bone marrow contusions or fractures. No acromioclavicular joint degeneration. The acromion demonstrates conventional anatomy, without an os acromiale. Capsule and soft tissues: The labrum and glenohumeral ligaments appear intact. The long head of the biceps tendon demonstrates normal location and morphology. The rotator interval appears normal, without fibrosis. The coracohumeral ligament is of normal thickness. No intra-articular bodies. IMPRESSION: 1. Supraspinatus tendinosis with low-grade interstitial tear. 2. Suspect mild subacromial/subtotal bursitis. Dictated by: Jacy Robert M.D. on 06/09/2023 at 14:12 Approved by: Jacy Robert M.D. on 06/09/2023 at 14:19
--- NOTE | 2023-06-09 | DI.RAD.S_ITS ---
PROCEDURE: FL SHOULDER INJECTION MR/CT RT INDICATIONS: RIGHT SHOULDER PAIN COMPARISON: None. TECHNIQUE: The indications, alternatives, benefits, risks, and complications of the procedure were explained to the patient. Written informed consent was obtained and placed in the chart. The shoulder was examined fluoroscopically and a site for needle placement chosen for entry into the glenohumeral joint from an anterior approach. The skin was prepped and draped in a sterile fashion, and 1% lidocaine infiltrated from skin down to joint capsule. A spinal needle was inserted into the glenohumeral joint, and a small amount of iodinated contrast media injected to confirm intra-articular placement of the needle tip. This was followed by approximately 12 mL dilute solution of a gadolinium containing MR contrast agent. The needle was removed and a dressing was applied. The patient was given postprocedural instructions and sent to the MR suite for MR imaging. FINDINGS: A single fluoroscopic spot image demonstrates intra-articular location of injected iodinated contrast. IMPRESSION: Successful fluoroscopically guided administration of dilute Gadolinium solution into the shoulder joint for MR arthrogram. Dictated by: Elvie Timmons M.D. on 06/09/2023 at 11:22 Approved by: Elvie Timmons M.D. on 06/09/2023 at 11:22
[2023-06-09] MEDS: SODIUM CHLORIDE 0.9 % 20 ML VIAL IV (09:33)
[2023-06-09] MEDS: LIDOCAINE 1% 20 ML INJ (09:33)
== END ==
PROVIDERS: Referring Provider General Practice; Visit Provider General Practice
DX: M75.111 Incomplete rotator cuff tear or rupture of right shoulder, not specified as traumatic (principal); M25.511 Pain in right shoulder
CPT/HCPCS: 23350; 73222; 77002